=== PATIENT | female | born 1975 | race African-American/Black ===

== ENCOUNTER 2024-01-31 13:49 | Inpatient (IN) ==
[2024-01-31] MEDS: NITROGLYCERIN SL 0.4 MG/TAB TAB SL PRN (14:12)
[2024-01-31] MEDS: ASPIRIN CHEW 324 MG PO STA (14:12)
--- NOTE | 2024-01-31 14:29 | XRay Report ---
XR chest 1V portable CLINICAL HISTORY: Chest pain, nonspecific TECHNIQUE: Single frontal radiograph of the chest was obtained. Comparison: None available at the time of this dictation. FINDINGS: No lines and tubes are seen. Cardiomegaly is noted. The lungs are clear. No evidence of pleural effus ion or pneumothorax. IMPRESSION: No acute chest disease. ACT 112: Negative or not required by law. Electronically signed by: Pierce Vázquez M.D. 01/31/2024 2:28 PM
[2024-01-31 14:30] LABS: Basophils # (auto) 0.07 K/uL (0.00-0.20); Basophils % (auto) 0.8 %; Eosinophils # (auto) 0.23 K/uL (0.00-0.50); Eosinophils % (auto) 2.6 %; Hematocrit (blood only) 38.8 % (37.0-47.0); Immature Granulocytes # (auto) 0.05 K/uL (0.01-0.20); Immature Granulocytes % (auto) 0.6 %; Lymphocytes # (auto) 2.42 K/uL (1.20-3.40); Lymphocytes % (auto) 26.9 %; Mean Corpuscular Hemoglobin 20.2 pg (25.0-34.0); Mean Corpuscular Hgb Conc 30.9 g/dL (32.0-36.0); Mean Corpuscular Volume 65.4 fL (80.0-100.0); Monocytes # (auto) 1.05 K/uL (0.11-0.59); Monocytes % (auto) 11.7 %; Neutrophils # (auto) 5.19 K/uL (1.40-6.50); Neutrophils % (auto) 57.4 %; Nucleated RBC # (auto) 0.03 K/uL (0.00-0.12); Nucleated RBC % (auto) 0.3 %; RDW Standard Deviation 35.5 fL (36.4-46.3); Red Blood Count 5.93 M/uL (4.20-5.40); White Blood Count 9.01 K/ul (4.8-10.8)
[2024-01-31 14:43] LABS: BUN Creatinine Ratio 10.2 (10-20); Creatinine Clr Calc Pharmacy 82.6 ml/min; Est GFR (African American) 88.8 ml/min; Est GFR (Non-African American) 76.6 ml/min; Potassium 3.4 mmol/L (3.5-5.1)
[2024-01-31 14:49] LABS: Troponin I High Sensitivity 6.1 pg/ml (0-14)
[2024-01-31] MEDS: OPTIRAY 320 125ml IV ONE (14:50)
[2024-01-31 14:59] LABS: Partial Thromboplastin Ratio 0.9; Partial Thromboplastin Time 25 Seconds (21-31); Prothrombin Time 10.5 Seconds (9.0-12.0)
[2024-01-31 15:01] LABS: Platelet Count 285 K/uL (130-400); Platelet Estimate Normal (Normal); Polychromasia 1+; Target Cells 1+; Tear Drop Cells 1+
--- NOTE | 2024-01-31 15:24 | CT Scan Report ---
CT ANGIOGRAPHY OF THE CHEST, PULMONARY EMBOLUS PROTOCOL CLINICAL HISTORY: Chest Pain, eval for PE COMPARISON STUDY: Chest radiograph performed earlier today. TECHNIQUE: Following IV administration of 119 mL of Optiray, helical axial images of the chest were o btained utilizing the pulmonary embolus protocol. Maximal intensity projections and sagittal and cor onal reformats were viewed on an independent 3D workstation. IV contrast was administered without co mplication. Automated exposure control was utilized for the study. A dose lowering technique was ut ilized adhering to the principles of ALARA. CT DOSE: 666.51 mGy.cm FINDINGS: No pulmonary emboli are identified. There is no thoracic aortic dissection. There is mild aneurysmal dilatation of the ascending aorta measuring 4.1 cm at the level of the main pulmonary hayde ry. The central pulmonary arteries are mildly dilated. Main pulmonary artery measures 3.6 cm in calib er. The heart is mildly enlarged. There is no pericardial effusion. There is no pneumothorax or pleur al effusion. There is no consolidation to suggest pneumonia. Mild upper lobe predominant emphysema is present. There are no suspicious pulmonary nodules. IMPRESSION: 1. No pulmonary emboli identified. 2. No acute intrathoracic findings. 3. Mild aneurysmal dilatation of the ascending aorta measuring 4.1 cm at the level of the main pulmon richard artery. 4. Mild cardiomegaly. 5. Dilatation of the central pulmonary arteries which raises the possibility of pulmonary arterial hy pertension. 6. Mild emphysema. ACT 112: Negative or not required by law. Electronically signed by: Joe Amos M.D. 01/31/2024 3:22 PM
--- NOTE | 2024-01-31 15:43 | Electrocardiogram Report ---
Test Reason : Blood Pressure : */* mmHG Vent. Rate : 96 BPM Atrial Rate : 96 BPM P-R Int : 166 ms QRS Dur : 90 ms QT Int : 356 ms P-R-T Axes : 71 32 43 degrees QTcB Int : 449 ms Normal sinus rhythm Minimal voltage criteria for LVH, may be normal variant Borderline ECG No previous ECGs available Confirmed by Chin Jackson ([id number]) on 01/31/2024 3:43:28 PM Referred By: REFERRED SELF Confirmed By: Chin Jackson
--- NOTE | 2024-01-31 15:45 | History & Physical Report ---
Date of Service January 31, 2024 Assessment & Plan (1) Chest pain: (2) Hypertensive urgency: (3) HTN (hypertension): (4) Asthma: (5) Vitamin D deficiency: (6) Beta thalassemia: Plan: Chest Pain Hypertensive Urgency Suspected Pulmonary Artery Hypertension - Admit to tele for CP r/o - Trend cardiac biomarkers, initial set was negative at 6.1 - EKG reviewed personally in NSR, HR in the 90s, no ST wave changes however there is nothing to compare to today. Repeat in am. - Check 2 D echo - Cardiology consulted - If negative enzymes can consider a stress test tomorrow morning. - Initial BP was 215/118 -- given lisinopril 5 mg now and IV labetolol with improvement in BP to 168/107, start metoprolol 25 mg BID this evening - CTA is negative for pulmonary embolism but does show dilated central pulmonary arteries suspicious for pulmonary artery hypertension - PT/OT consulted - Concern that anxiety is playing a large role - pt is agreeable to psych eval for starting anxiolytic. She has not seen therapist previously. - Recently trialed Chantix, possible that this caused increased irritability/anxiety/panic attacks? Hypokalemia - K was 3.4 initially, replaced orally Nicotine Use/Vape/Cigarette Use Asthma, intermittent - Encourage cessation - Chantix stopped 3 days ago - significant anxiety - likely a side effect of the medication as can cause up to 8% after review in uptodate - Proair to continue Anxiety Panic Attack - Psych consult - Consider initiation of SSRI/SNRI to assist with neuropathy and support use of gabapentin for shoulder pain R shoulder pain - Consider Xray vs MRI - Negative empty can test, has point tenderness over the acromion process with palpation- consider acromioclavicular joint injury from swinging her arm hard a month ago. 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, she does see an oncologist in [place] - Denies chronic pain or specific area to suggest that she is in crisis - Pt does not receive routine blood transfusions DVT ppx: teds, scds, subcu heparin Lines: PIV x 1 FEN/GI: HH diet CODE: Full code Dispo: From home, likely to remain in the hospital x 1-2 days A total of 78 minutes were spent with greater than 50% of that time face to face with the patient, personally reviewing all current laboratories, imaging studies, past medication reconciliation, outpatient chart review, and discussion with specialists to collaborate care for the patient with attending. Please see attending documentation for corrections and/or additions. History of Present Illness Chief Complaint: Chest pain Primary Care Provider: Gabriel Deleon MD This is a 48-year-old female with PMHx of beta thalassemia, HTN, intermittent asthma, vitamin D deficiency, history of smoking, chronic bilateral low back pain with sciatica who presents to the hospital with acute onset of chest pain with radiation to the R shoulder blade and down into right arm. She reports that this began approximately 1 hour prior to her arrival in the ER, notes that she was significantly stressed and anxious about a argument she was having with her about the television. He is seated at bedside and confirms this. She reports that her anxiety has been extremely high in the past week regarding repeated television arguments. She has never had chest pain like this before. Denies any shortness of breath during these events, no headache although she has a history of migraine, no other acute symptoms. Currently she denies any chest pain or shortness of breath.Did not take her morning HCTZ 12.5 mg this morning. 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 About 1 month ago she swung her arm hard and states that has had pain ever since then. She is unable to lift more than 5 pounds above the height of the shoulder without pain. She was started on gabapentin by PCP 1 week ago and reports that this has improved numbness and tingling pain which was running down into her right arm. Denies any current shoulder pain or arm pain, states that her arm pain she fell earlier today has been similar to that she is experienced in the past month. Patient was seen by PCP approximately 1 week ago, was started on Chantix for cessation of smoking cigarettes which she has been doing for 2 years, prior to that was vaping nicotine x 15 years. She took the Chantix for 3 days and then quit, which was 01/28/2024. Patient denies any significant improvement with being on Chantix for 3 days. Patient states that she prefers a vape and wants to go back to doing this. She also says she has the willpower to quit nicotine all on her own if she wants to. Admits to smoking marijuana occasionally, also uses marijuana Gummies. Denies any illicit drug use otherwise or alcohol use. Reports unintentional weight loss of ~20 lbs over the past year due to poor diet. Also noting rash over her chin s/p shaving, also around her neck and between breasts which is itchy, started 3 days ago. Family history: Mother: heart disease, ID, at age 67 Maternal grandmother: COVID and ID, in her 80s. Paternal grandmother: heart disease, from walking pneumonia Initially she presented to the hospital with a BP of 215/116, received 1 dose of sublingual nitro with slight improvement in chest discomfort. EKG did not show any acute findings. Troponin is negative at 6.1. She did not take any of her morning antihypertensive medications today which includes HCTZ 12.5 daily. CTA of the chest was negative for PE. Allergies Allergy/AdvReac Type Severity Reaction Status Date / Time cephalexin [From Keflex] Allergy Severe PER PT Verified 01/31/24 15:40 "SWELL UP ALL OVER" house dust Allergy Mild Cough Verified 01/31/24 15:40 Home Medications Medication Instructions Recorded Confirmed Type albuterol sulfate 90 mcg/actuation 2 inh inhalation QID 01/31/24 01/31/24 History aerosol inhaler cholecalciferol (vitamin D3) 10 400 unit PO BID 01/31/24 01/31/24 History mcg (400 unit) tablet ferrous sulfate 325 mg (65 mg 325 mg PO BID 01/31/24 01/31/24 History iron) tablet fluticasone fur. 200 mcg-umeclid 1 inh inhalation QPM 01/31/24 01/31/24 History 62.5 mcg-vilant 25 mcg inhalat.powder (Trelegy Ellipta) gabapentin 300 mg capsule 600 mg PO HS 01/31/24 01/31/24 History hydrochlorothiazide 12.5 mg capsule 12.5 mg PO QAM 01/31/24 01/31/24 History montelukast 10 mg tablet 10 mg PO QAM 01/31/24 01/31/24 History ayjhkpsx-lvf-nfvdg ac 400 1 tab PO QAM 01/31/24 01/31/24 History mcg-calcium carb 500 mg-vit K1 20 mcg tablet (Women's 50 Plus Multivitamin) varenicline 0.5 mg (11)-1 mg (42) 1 ea PO DIRECTED 01/31/24 01/31/24 History tablets in a dose pack Past Med/Surg History Problem List (Updated 01/31/24 @ 19:27 by Shaquille Berrios MD) Hypertensive urgency (Acute) Chest pain (Acute) Medical History (Updated 01/31/24 @ 19:27 by Shaquille Berrios MD) Asthma Beta thalassemia Vitamin D deficiency HTN (hypertension) Surgical History (Updated 01/31/24 @ 15:40 by Nayeli Dennis PA-C) History of salpingostomy Hx of section x3 Social History (Updated 01/31/24 @ 15:41 by Nayeli Dennis PA-C) Smoking Status: Current every day smoker Tobacco Type: E-cigarettes / Vaping Hx Alcohol Use: No Hx Substance Use: No Preferred Language: Citizen Of [place] Communication Ability: Effective Database Reporting Consultant Required: No Beliefs That Will Affect Care: Cheondoism Cheondoism Beliefs: Zoroastrian Current Living Situation: Spouse Current Living Situation Comment: apartment with Peter and son Other Information That Helps Us Care for You: No Feels Safe at Home: Yes Safety Concerns: Feels Safe At This Time Review of Systems Review of Systems: Constitutional: No fever, sweats or chills Eyes: No diplopia, no worsening or blurred vision ENT: normal hearing, no trouble swallowing Respiratory: No cough, sputum, dyspnea at rest or on exertion Cardiovascular: As per HPI, currently no chest pain, tightness or palpitations Abdomen: No pain, nausea, vomiting, diarrhea or constipation Musculoskeletal: Right upper back/right shoulder joint pain as per HPI, no calf pain, swelling Neurologic: No weakness, numbness/tingling, or balance problems Psychiatric: + anxiety, denies depression Skin: + Skin rash under her chin, around the sides of her neck and between breasts, or itch Physical Exam Physical Exam: General: awake, alert, no apparent distress, female Head: Normocephalic, atraumatic ENT: PERRL, EOMI, no pharyngeal exudate, mucous membranes moist Chest: Clear to auscultation, on room air, no adventitious breath sounds Cardiac: Chest nontender to palpation, nitropaste on chest, Regular rate and rhythm, no murmur, no JVD, normal peripheral pulses, good capillary refill Abdominal: NABS x 4 quadrants, soft, nondistended, nontender to palpation, no rebound or guarding Extremities: Normal inspection, no peripheral edema or erythema, calfs nontender to palpation, + point tenderness in R AC joint on palpation, negative empty can test, pt moves arm with full active ROM. Psych: Normal mood and affect Neuro: AAO x 3, strength intact bilaterally and rated 5/5, no motor deficits, speech is clear, no peripheral sensory deficits Results & Data Results & Data Vital Signs (Past 12 Hours) Vital Signs Temp Pulse Resp BP BP Pulse Ox O2 Del Method 01/31/24 15:21 78 01/31/24 14:59 215/116 H 01/31/24 14:14 98 Room Air 01/31/24 13:55 36.1 C L 90 22 215/118 H 98 Room Air Laboratory Results 01/31/24 14:05 WBC 9.01 RBC 5.93 H Hgb 12.0 Hct 38.8 MCV 65.4 L MCH 20.2 L MCHC 30.9 L RDW Std Deviation 35.5 L RDW Coeff of Nestor 18.0 H Plt Count 285 MPV 10.0 Immature Gran % (Auto) 0.6 Neut % (Auto) 57.4 Lymph % (Auto) 26.9 Rich % (Auto) 11.7 Eos % (Auto) 2.6 Baso % (Auto) 0.8 Neut # (Auto) 5.19 Lymph # (Auto) 2.42 Rich # (Auto) 1.05 H Eos # (Auto) 0.23 Baso # (Auto) 0.07 Immature Gran # (Auto) 0.05 Absolute Nucleated RBC 0.03 Nucleated RBC % (auto) 0.3 Platelet Estimate Normal Polychromasia 1+ Target Cells 1+ Tear Drop Cells 1+ PT 10.5 INR 1.0 APTT 25 PTT Ratio 0.9 Sodium 139 Potassium 3.4 L Chloride 101 Carbon Dioxide 32 Anion Gap 6 BUN 9 Creatinine 0.88 Est Cr Clr Drug Dosing 82.6 Est GFR ( Amer) 88.8 Est GFR (Non-Af Amer) 76.6 BUN/Creatinine Ratio 10.2 Glucose 99 Calcium 10.0 Troponin I High Sens 6.1 Lipase 32 Diagnostic Findings Chest X-Ray 01/31/24 14:05 XR chest 1V portable CLINICAL HISTORY: Chest pain, nonspecific TECHNIQUE: Single frontal radiograph of the chest was obtained. Comparison: None available at the time of this dictation. FINDINGS: No lines and tubes are seen. Cardiomegaly is noted. The lungs are clear. No evidence of pleural effusion or pneumothorax. IMPRESSION: No acute chest disease. ACT 112: Negative or not required by law. Electronically signed by: Pierce Vázquez M.D. 01/31/2024 2:28 PM Chest CTA 01/31/24 14:06 CT ANGIOGRAPHY OF THE CHEST, PULMONARY EMBOLUS PROTOCOL CLINICAL HISTORY: Chest Pain, eval for PE COMPARISON STUDY: Chest radiograph performed earlier today. TECHNIQUE: Following IV administration of 119 mL of Optiray, helical axial images of the chest were obtained utilizing the pulmonary embolus protocol. Maximal intensity projections and sagittal and coronal reformats were viewed on an independent 3D workstation. IV contrast was administered without complication. Automated exposure control was utilized for the study. A dose lowering technique was utilized adhering to the principles of ALARA. CT DOSE: 666.51 mGy.cm FINDINGS: No pulmonary emboli are identified. There is no thoracic aortic dissection. There is mild aneurysmal dilatation of the ascending aorta measuring 4.1 cm at the level of the main pulmonary artery. The central pulmonary arteries are mildly dilated. Main pulmonary artery measures 3.6 cm in caliber. The heart is mildly enlarged. There is no pericardial effusion. There is no pneumothorax or pleural effusion. There is no consolidation to suggest pneumonia. Mild upper lobe predominant emphysema is present. There are no suspicious pulmonary nodules. IMPRESSION: 1. No pulmonary emboli identified. 2. No acute intrathoracic findings. 3. Mild aneurysmal dilatation of the ascending aorta measuring 4.1 cm at the level of the main pulmonary artery. 4. Mild cardiomegaly. 5. Dilatation of the central pulmonary arteries which raises the possibility of pulmonary arterial hypertension. 6. Mild emphysema. ACT 112: Negative or not required by law. Electronically signed by: Joe Amos M.D. 01/31/2024 3:22 PM Code Status & VTE Plan Code Status Full code Supervising Physician Co-Signing Physician Notes Attending Addendum: Case reviewed with the advanced practitioner. I have personally performed a history and physical examination on the patient. I have reviewed the advanced practitioner's documentation on the date of service referenced in note, and I agree with, and take responsibility for the plan of care. please refer to her notes for full details patient seen and examined, records reviewed by myself as well on exam, patient Resting in bed, comfortable, not in distress, good space Reports chest pain has resolved Denies shortness of breath, headache, nausea vomiting, palpitations, dizziness Requesting for food No other symptoms no other symptoms VS noted and reviewed oriented x 3, not in distress, speaks in sentences with no effort nor accessory muscle use normal rate, regular rhythm, no murmurs clear breath sounds bilaterally non distended, soft, nontender no bipedal edema, erythema, warmth no neuro deficits all labs, imaging noted and reviewed ASSESSMENT AND PLAN 48-year-old female with history of hypertension, smoking, strong family history of CAD, presenting with chest pain. Chest pain, rule out acute coronary syndrome Possibly secondary to hypertensive urgency CT chest: No PE Resolved with lowering of blood pressure after nitroglycerin paste, and labetalol Troponin x 1 negative, second troponin pending EKG no signs of ischemia or infarct Start metoprolol, lisinopril, aspirin, simvastatin N.p.o. postmidnight, for possible stress test Cardiology service consulted Start Lovenox or heparin SC for DVT prophylaxis once blood pressure has been stabilized other diagnoses and plan of care as per advanced practitioner's notes Morgan Neely MD
[2024-01-31] MEDS: NITROGLYCERIN SL 0.4 MG/TAB TAB SL STA (15:49)
[2024-01-31] MEDS: NITROGLYCERIN 2% OINTMENT 30GM TUBE EXT ONE (15:51)
[2024-01-31] MEDS: LABETALOL HCL IV 5 MG/ML 20ML IV ONE (15:58)
[2024-01-31] MEDS: lisinopril 5 MG TAB PO ONE (15:58)
[2024-01-31] MEDS: LABETALOL HCL IV 5 MG/ML 20ML IV STA (16:06)
[2024-01-31] MEDS ORDERED: TRIAMCINOLONE ACET 0.1% CR 80 GM TUBE EXT PRN (17:27)
[2024-01-31] MEDS ORDERED: MoRPHine SULFATE 2 MG/ML CARP IV PRN (17:27)
[2024-01-31] MEDS: POTASSIUM CHLORIDE CRTAB 20 MEQ TABCR PO STA (18:22)
[2024-01-31] MEDS: ACETAMINOPHEN 325 MG TAB PO PRN (18:26)
[2024-01-31] MEDS: ALBUTEROL HFA 8 GM INHALER INH SCH (19:22)
--- NOTE | 2024-01-31 19:27 | Emergency Department Note ---
History of Present Illness General Chief Complaint: Chest Pain Stated Complaint: CHEST PAINS Time Seen by Provider: 01/31/24 14:00 History of Present Illness Provider Complaint: chest pain Onset (ago): day(s) 1 Duration: intermittent Onset: during rest Pain Location: substernal and right chest Pain Radiation: RUE and jaw/teeth Maximum Pain Intensity: 5 Current Pain Intensity: 5 Quality: + tightness, + aching, + sharp and + dull Relieved By: + nothing Exacerbated By: + nothing Context: no recent illness, no recent surgery, no recent travel, no trauma/injury or no history of DVT/PE Associated symptoms: no nausea, no vomiting, no diaphoresis, no dyspnea, no syncope, no palpitations, no fever or no cough Patient reports she did not take her medications today. Home Medications Medication Instructions Recorded Confirmed Type albuterol sulfate 90 mcg/actuation 2 inh inhalation QID 01/31/24 01/31/24 History aerosol inhaler cholecalciferol (vitamin D3) 10 400 unit PO BID 01/31/24 01/31/24 History mcg (400 unit) tablet ferrous sulfate 325 mg (65 mg 325 mg PO BID 01/31/24 01/31/24 History iron) tablet fluticasone fur. 200 mcg-umeclid 1 inh inhalation QPM 01/31/24 01/31/24 History 62.5 mcg-vilant 25 mcg inhalat.powder (Trelegy Ellipta) gabapentin 300 mg capsule 600 mg PO HS 01/31/24 01/31/24 History hydrochlorothiazide 12.5 mg capsule 12.5 mg PO QAM 01/31/24 01/31/24 History montelukast 10 mg tablet 10 mg PO QAM 01/31/24 01/31/24 History wvnswppi-knx-luguk ac 400 1 tab PO QAM 01/31/24 01/31/24 History mcg-calcium carb 500 mg-vit K1 20 mcg tablet (Women's 50 Plus Multivitamin) varenicline 0.5 mg (11)-1 mg (42) 1 ea PO DIRECTED 01/31/24 01/31/24 History tablets in a dose pack Allergies Allergy/AdvReac Type Severity Reaction Status Date / Time cephalexin [From Keflex] Allergy Severe PER PT Verified 01/31/24 15:40 "SWELL UP ALL OVER" house dust Allergy Mild Cough Verified 01/31/24 15:40 Past Med/Surg History Problem List (Updated 01/31/24 @ 19:27 by Shaquille Berrios MD) Hypertensive urgency (Acute) Chest pain (Acute) Medical History (Updated 01/31/24 @ 19:27 by Shaquille Berrios MD) Asthma Beta thalassemia Vitamin D deficiency HTN (hypertension) Surgical History (Updated 01/31/24 @ 15:40 by Nayeli Dennis PA-C) History of salpingostomy Hx of section x3 Social History (Updated 01/31/24 @ 15:41 by Nayeli Dennis PA-C) Smoking Status: Current every day smoker Tobacco Type: E-cigarettes / Vaping Hx Alcohol Use: No Hx Substance Use: No Preferred Language: Telugu Communication Ability: Effective Compressor Station Operator Required: No Beliefs That Will Affect Care: Worship Worship Beliefs: Gnosticist Current Living Situation: Spouse Current Living Situation Comment: apartment with Peter and son Other Information That Helps Us Care for You: No Feels Safe at Home: Yes Safety Concerns: Feels Safe At This Time Physical Exam Vital Signs Vital Signs - 24 hr 01/31/24 13:55 01/31/24 14:14 01/31/24 14:59 Temperature 36.1 C L Temperature Source Temporal Artery Scan Pulse Rate 90 Respiratory Rate 22 Respiratory Effort / Characteristics Non-Labored Spontaneous Respiratory Depth Normal Respiratory Pattern Regular Blood Pressure 215/118 H Blood Pressure [Left Arm] 215/116 H Blood Pressure Mean 150 Blood Pressure Mean [Left Arm] 149 Pulse Oximetry 98 98 Oxygen Delivery Method Room Air Room Air Sepsis Recent Fever Within 48 Hours No Sepsis New/Unexplained Change in Mental Status N/A Sepsis Action Taken by Nursing No Action Required 01/31/24 15:21 01/31/24 15:58 Temperature Temperature Source Pulse Rate 78 79 Respiratory Rate Respiratory Effort / Characteristics Respiratory Depth Respiratory Pattern Blood Pressure 210/123 H Blood Pressure [Left Arm] Blood Pressure Mean Blood Pressure Mean [Left Arm] Pulse Oximetry Oxygen Delivery Method Sepsis Recent Fever Within 48 Hours Sepsis New/Unexplained Change in Mental Status Sepsis Action Taken by Nursing Physical Exam HENT: Exam performed. - Head: Normocephalic and atraumatic. EYES: Conjunctivae and EOM are normal. Right eye exhibits no discharge. Left eye exhibits no discharge. No scleral icterus. NECK: Normal range of motion. Neck supple. No JVD present. CV: Normal rate, regular rhythm, normal heart sounds and intact distal pulses. There is no peripheral edema. Palpable radial pulses bue. PULM/CHEST: Effort normal and breath sounds normal. No respiratory distress. No stridor. no wheezes. no rales. ABD: The abdomen is soft. There is no tenderness. NEURO: Motor and sensation grossly intact. SKIN: Skin is warm and dry. He is not diaphoretic. PSYCH: normal mood and affect. Behavior is normal. Judgment and thought content normal. Course Course 1400: The patient was evaluated in room A3. A complete history and physical exam was performed Cardiac monitoring: An order was placed for continuous cardiac monitoring. The monitor shows a rate of 90 with sinus rhythm interpreted by me 1430: Patient reports that her chest pain is resolved with sublingual nitroglycerin. 1530: Labs are unremarkable. Imaging shows no pulmonary embolus or aortic dissection. There is aneurysmal dilatation of the ascending aorta measuring 4.1 cm and possible pulmonary arterial hypertension. Patient remains hypertensive. Patient is reporting her chest pain is come back. Repeat sublingual nitroglycerin and Nitropaste ordered for the patient. Patient will be admitted to the [facility] team. Administered Medications Acetaminophen (Acetaminophen 325 Mg Tab) 650 mg PO Q4H PRN PRN Reason: Moderate Pain (Scale 4, 5, 6) Stop: 03/01/24 17:26 Last Admin: 01/31/24 18:26 Dose: 650 mg Documented By: DAMIAN Nitroglycerin (Nitroglycerin Sl 0.4 Mg/Tab Tab) 0.4 mg SL Q5M PRN PRN Reason: Chest Pain Stop: 03/01/24 14:04 Last Admin: 01/31/24 15:45 Dose: 0.4 mg Documented By: Admin: 01/31/24 14:12 Dose: 0.4 mg Documented By: WILNER Discontinued Medications Aspirin (Aspirin Chew 324 Mg) 324 mg PO NOW STA Stop: 01/31/24 14:06 Last Admin: 01/31/24 14:12 Dose: 324 mg Documented By: WILNER Ioversol (Optiray 320 125ml) 119 ml IV ONCE ONE Stop: 01/31/24 14:51 Last Admin: 01/31/24 14:50 Dose: 119 ml Documented By: EAB Labetalol HCl (Labetalol Hcl Iv 5 Mg/Ml 20ml) Confirm Administered Dose 5 mg IV .STK-MED ONE Stop: 01/31/24 15:57 Last Admin: 01/31/24 15:58 Dose: 10 mg Documented By: WILNER Labetalol HCl (Labetalol Hcl Iv 5 Mg/Ml 20ml) 10 mg IV NOW STA Stop: 01/31/24 15:58 Last Admin: 01/31/24 16:06 Dose: Not Given Documented By: WILNER Lisinopril (Lisinopril 5 Mg Tab) 5 mg PO NOW ONE Stop: 01/31/24 15:50 Last Admin: 01/31/24 15:58 Dose: 5 mg Documented By: WILNER Nitroglycerin (Nitroglycerin Sl 0.4 Mg/Tab Tab) 0.4 mg SL NOW STA Stop: 01/31/24 15:47 Last Admin: 01/31/24 15:49 Dose: Not Given Documented By: WILNER Nitroglycerin (Nitroglycerin 2% Ointment 30gm Tube) 0.5 inch EXT NOW ONE Stop: 01/31/24 15:47 Last Admin: 01/31/24 15:51 Dose: 0.5 inch Documented By: WILNER Potassium Chloride (Potassium Chloride Crtab 20 Meq Tabcr) 40 meq PO NOW STA Stop: 01/31/24 17:08 Last Admin: 01/31/24 18:22 Dose: 40 meq Documented By: DAMIAN Medical Decision Making Laboratory Data Attestation: I reviewed the patient's lab results. 01/31/24 14:05 01/31/24 14:05 Labs: Lab Results 01/31/24 Range/Units 14:05 WBC 9.01 (4.8-10.8) K/ul RBC 5.93 H (4.20-5.40) M/uL Hgb 12.0 (12.0-16.0) g/dl Hct 38.8 (37.0-47.0) % MCV 65.4 L (80.0-100.0) fL MCH 20.2 L (25.0-34.0) pg MCHC 30.9 L (32.0-36.0) g/dL RDW Std Deviation 35.5 L (36.4-46.3) fL RDW Coeff of Nestor 18.0 H (11.5-14.5) % Plt Count 285 (130-400) K/uL MPV 10.0 (9.4-12.4) fL Immature Gran % (Auto) 0.6 % Neut % (Auto) 57.4 % Lymph % (Auto) 26.9 % [place] % (Auto) 11.7 % Eos % (Auto) 2.6 % Baso % (Auto) 0.8 % Neut # (Auto) 5.19 (1.40-6.50) K/uL Lymph # (Auto) 2.42 (1.20-3.40) K/uL [place] # (Auto) 1.05 H (0.11-0.59) K/uL Eos # (Auto) 0.23 (0.00-0.50) K/uL Baso # (Auto) 0.07 (0.00-0.20) K/uL Immature Gran # (Auto) 0.05 (0.01-0.20) K/uL Absolute Nucleated RBC 0.03 (0.00-0.12) K/uL Nucleated RBC % (auto) 0.3 % Platelet Estimate Normal (Normal) Polychromasia 1+ Target Cells 1+ Tear Drop Cells 1+ PT 10.5 (9.0-12.0) Seconds INR 1.0 (0.9-1.1) APTT 25 (21-31) Seconds PTT Ratio 0.9 Sodium 139 (136-145) mmol/L Potassium 3.4 L (3.5-5.1) mmol/L Chloride 101 (98-107) mmol/L Carbon Dioxide 32 (21-32) mmol/L Anion Gap 6 (3-11) BUN 9 (6-23) mg/dl Creatinine 0.88 (0.6-1.2) mg/dl Est Cr Clr Drug Dosing 82.6 ml/min Est GFR ( Amer) 88.8 ml/min Est GFR (Non-Af Amer) 76.6 ml/min BUN/Creatinine Ratio 10.2 (10-20) Glucose 99 (70-99(Fasting)) mg/dl Calcium 10.0 (8.6-10.3) mg/dl Troponin I High Sens 6.1 (0-14) pg/ml Lipase 32 (11-82) U/L Imaging Data Chest x-ray: Attestation: I personally reviewed and interpreted this imaging study as follows: My impression: Chest x-ray negative. Airway clear. No pneumothorax. No consolidation. No cardiomegaly or cephalization.. No free air under the diaphragm. No fractures of the skeletal structures. Radiologist's impression: XR chest 1V portable CLINICAL HISTORY: Chest pain, nonspecific TECHNIQUE: Single frontal radiograph of the chest was obtained. Comparison: None available at the time of this dictation. FINDINGS: No lines and tubes are seen. Cardiomegaly is noted. The lungs are clear. No evidence of pleural effusion or pneumothorax. IMPRESSION: No acute chest disease. ACT 112: Negative or not required by law. Electronically signed by: Pierce Vázquez M.D. 01/31/2024 2:28 PM Dictated: 01/31/241427 Transcribed: 01/31/241427 CT scan - chest: Radiologist's impression: CT ANGIOGRAPHY OF THE CHEST, PULMONARY EMBOLUS PROTOCOL CLINICAL HISTORY: Chest Pain, eval for PE COMPARISON STUDY: Chest radiograph performed earlier today. TECHNIQUE: Following IV administration of 119 mL of Optiray, helical axial images of the chest were obtained utilizing the pulmonary embolus protocol. Maximal intensity projections and sagittal and coronal reformats were viewed on an independent 3D workstation. IV contrast was administered without complication. Automated exposure control was utilized for the study. A dose lowering technique was utilized adhering to the principles of ALARA. CT DOSE: 666.51 mGy.cm FINDINGS: No pulmonary emboli are identified. There is no thoracic aortic dissection. There is mild aneurysmal dilatation of the ascending aorta measuring 4.1 cm at the level of the main pulmonary artery. The central pulmonary arteries are mildly dilated. Main pulmonary artery measures 3.6 cm in caliber. The heart is mildly enlarged. There is no pericardial effusion. There is no pneumothorax or pleural effusion. There is no consolidation to suggest pneumonia. Mild upper lobe predominant emphysema is present. There are no suspicious pulmonary nodules. IMPRESSION: 1. No pulmonary emboli identified. 2. No acute intrathoracic findings. 3. Mild aneurysmal dilatation of the ascending aorta measuring 4.1 cm at the level of the main pulmonary artery. 4. Mild cardiomegaly. 5. Dilatation of the central pulmonary arteries which raises the possibility of pulmonary arterial hypertension. 6. Mild emphysema. ACT 112: Negative or not required by law. Electronically signed by: Joe Amos M.D. 01/31/2024 3:22 PM Dictated: 01/31/24 1512 Transcribed: 01/31/24 1512 ECG Data Attestation: I personally reviewed and interpreted this ECG as follows: Indication: chest pain Rate (beats per minute): 96 Rhythm: normal sinus Findings: no ST depression, no ST elevation or no prolonged QT MDM Narrative 1400: The patient was evaluated in room A3. A complete history and physical exam was performed Cardiac monitoring: An order was placed for continuous cardiac monitoring. The monitor shows a rate of 90 with sinus rhythm interpreted by me 1430: Patient reports that her chest pain is resolved with sublingual nitroglycerin. 1530: Labs are unremarkable. Imaging shows no pulmonary embolus or aortic dissection. There is aneurysmal dilatation of the ascending aorta measuring 4.1 cm and possible pulmonary arterial hypertension. Patient remains hypertensive. Patient is reporting her chest pain is come back. Repeat sublingual nitroglycerin and Nitropaste ordered for the patient. Patient will be admitted to the [facility] team. Impression & Plan Hypertensive urgency, Chest pain Discharge Plan Visit Data Chief Complaint: Chest Pain Stated Complaint: CHEST PAINS ED Provider: Shaquille Berrios Discharge Problem: Hypertensive urgency, Chest pain Patient Disposition: Admitted As Inpatient Discharge Instructions Interventions: ED Discharge Assessment Last Done: 01/31/24 17:10 Discharge Problem: Chest pain Qualifiers: Chest pain type: unspecified Qualified Code(s): R07.9 - Chest pain, unspecified
[2024-01-31] MEDS ORDERED: hydrALAZINE HCL 20 MG/ML VIAL IV PRN (20:15)
[2024-01-31] MEDS ORDERED: NON-FORMULARY MEDICATION (Fluticasone-Umeclidin-Vilanter [Trelegy Ellipta] 200-62.5-25 mcg INH SCH (21:00)
[2024-01-31] MEDS ORDERED: HEPARIN SOD 5,000 UNIT/0.5 ML VIAL SQ SCH (21:00)
[2024-01-31] MEDS: KETOROLAC TROMETHAMINE 15 MG/ML VIAL IV ONE (21:20)
[2024-01-31] MEDS: FERROUS SULFATE 325 MG TAB PO SCH (21:20)
[2024-01-31] MEDS: GABAPENTIN 600 MG TAB PO SCH (21:20)
[2024-01-31] MEDS: METOPROLOL TARTRATE 25 MG TAB PO SCH (21:20)
[2024-01-31] MEDS: CHOLECALCIFEROL 10 MCG (400 UNITS) TAB PO SCH (21:21)
[2024-01-31] MEDS: ONDANSETRON INJ 2 MG/ML 2 ML VIAL IV PRN (22:04)
[2024-02-01] MEDS ORDERED: MELATONIN 3 MG TAB PO PRN (00:03)
[2024-02-01] MEDS: MELATONIN 3 MG TAB PO ONE (00:59)
[2024-02-01 06:57] LABS: Hematocrit (blood only) 36.1 % (37.0-47.0); Hemoglobin 11.3 g/dl (12.0-16.0); Mean Corpuscular Hemoglobin 20.7 pg (25.0-34.0); Mean Corpuscular Hgb Conc 31.3 g/dL (32.0-36.0); Mean Corpuscular Volume 66.1 fL (80.0-100.0); Mean Platelet Volume 10.4 fL (9.4-12.4); Nucleated RBC # (auto) 0.03 K/uL (0.00-0.12); Nucleated RBC % (auto) 0.3 %; Platelet Count 301 K/uL (130-400); RDW Coefficient of Variation 17.2 % (11.5-14.5); RDW Standard Deviation 35.3 fL (36.4-46.3); Red Blood Count 5.46 M/uL (4.20-5.40); White Blood Count 9.26 K/ul (4.8-10.8)
[2024-02-01 07:06] LABS: Microcytosis Present
[2024-02-01 07:27] LABS: BUN Creatinine Ratio 15.6 (10-20); Calcium 9.2 mg/dl (8.6-10.3); Creatinine Clr Calc Pharmacy 94.6 ml/min; Est GFR (African American) 104.3 ml/min
[2024-02-01] MEDS: ATORVASTATIN 20 MG TAB PO SCH (08:40)
[2024-02-01] MEDS: hydroCHLOROthiazide 25 MG TAB PO SCH (08:40)
[2024-02-01] MEDS: lisinopril 5 MG TAB PO SCH (08:40)
[2024-02-01] MEDS: ASPIRIN 81 MG ECTAB PO SCH (08:40)
[2024-02-01] MEDS: FLUTICASONE FUROATE 200MCG 14 PUFFS/INHALER INH SCH (08:42)
[2024-02-01] MEDS: UMECLIDINIUM/VILANTEROL 62.5/25MCG 7 PUFFS/INHALER INH SCH (08:42)
[2024-02-01] MEDS ORDERED: ALBUTEROL HFA 8 GM INHALER INH PRN (09:11)
--- NOTE | 2024-02-01 09:11 | Hospitalist Progress Note ---
Date of Service February 01, 2024 Assessment & Plan (1) HTN (hypertension): (2) Vitamin D deficiency: (3) Beta thalassemia: (4) Chest pain: (5) Hypertensive urgency: (6) Asthma: Plan Pt is a 48-year-old female with PMHx of beta thalassemia, HTN, intermittent asthma, vitamin D deficiency, history of smoking, chronic bilateral low back pain with sciatica who presents to the hospital with acute onset of chest pain with radiation to the R shoulder blade and down into right arm. Chest Pain EKG with no acute findings Tropx2 wnl at 6.1 to 6.4 Chest xray no acute findings Chest CTA noting 4.1cm aneurysm of the aorta, cardiomegaly, possible PAH Echo pending Telemetry monitoring Pt was made NPO overnight for possible stress test this AM. Reportedly angry about not eating, declining stress testing at this time Cardiology consulted, appreciate recs Hypertensive Urgency Initial BP was 215/118 Was given IV labetolol and po lisinopril with improvement in BP to 168/107 started on metoprolol 25 mg BID with hctz 12.5mg Possible cause of chest pain Continue to monitor Possible pulmonary Artery HTN Noted on chest CTA Echo pending Cardiology consulted Consider pulm consult if confirmed on echo Ascending Aorta Aneurysm Noted on CTA chest, 4.1cm PCP follow up Emphysema Pt with past and current tobacco use Chantix stopped 3 days ago - significant anxiety No increased oxygen requirement Encourage cessation Hypokalemia K of 3.4 on admission replete as needed beta thalassemia Microcytic anemia Hgb 11-12 range Microcytic cells Noted hx of beta thal Anxiety Panic Attack Psych consult Consider initiation of SSRI/SNRI to assist with neuropathy and support use of gabapentin for shoulder pain R shoulder pain Consider XR r/o MSK cause Negative empty can test, has point tenderness over the acromion process with palpation PT/OT Consider ortho Beta Thalassemia 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, she does see an oncologist in [place] Denies chronic pain or specific area to suggest that she is in crisis Pt does not receive routine blood transfusions DVT ppx: subcu heparin Diet: HH diet Dispo: Admission and Anticipated Discharge Date Admission Date: January 31, 2024 Results & Data Results & Data Vital Signs (Past 12 Hours) Vital Signs Temp Pulse Pulse Resp BP BP Pulse Ox 02/01/24 07:59 36.8 C 70 16 171/74 H 97 02/01/24 07:22 83 18 95 02/01/24 05:46 61 02/01/24 03:33 36.8 C 68 16 156/88 H 98 02/01/24 00:54 66 01/31/24 23:03 36.5 C 65 16 148/90 H 97 O2 Del Method 02/01/24 07:59 Room Air 02/01/24 07:22 Room Air 02/01/24 05:46 02/01/24 03:33 Room Air 02/01/24 00:54 01/31/24 23:03 Room Air Diagnostic Findings Chest X-Ray 01/31/24 14:05 XR chest 1V portable CLINICAL HISTORY: Chest pain, nonspecific TECHNIQUE: Single frontal radiograph of the chest was obtained. Comparison: None available at the time of this dictation. FINDINGS: No lines and tubes are seen. Cardiomegaly is noted. The lungs are clear. No evidence of pleural effusion or pneumothorax. IMPRESSION: No acute chest disease. ACT 112: Negative or not required by law. Electronically signed by: Pierce Vázquez M.D. 01/31/2024 2:28 PM Chest CTA 01/31/24 14:06 CT ANGIOGRAPHY OF THE CHEST, PULMONARY EMBOLUS PROTOCOL CLINICAL HISTORY: Chest Pain, eval for PE COMPARISON STUDY: Chest radiograph performed earlier today. TECHNIQUE: Following IV administration of 119 mL of Optiray, helical axial images of the chest were obtained utilizing the pulmonary embolus protocol. Maximal intensity projections and sagittal and coronal reformats were viewed on an independent 3D workstation. IV contrast was administered without complication. Automated exposure control was utilized for the study. A dose lowering technique was utilized adhering to the principles of ALARA. CT DOSE: 666.51 mGy.cm FINDINGS: No pulmonary emboli are identified. There is no thoracic aortic dissection. There is mild aneurysmal dilatation of the ascending aorta measuring 4.1 cm at the level of the main pulmonary artery. The central pulmonary arteries are mildly dilated. Main pulmonary artery measures 3.6 cm in caliber. The heart is mildly enlarged. There is no pericardial effusion. There is no pneumothorax or pleural effusion. There is no consolidation to suggest pneumonia. Mild upper lobe predominant emphysema is present. There are no suspicious pulmonary nodules. IMPRESSION: 1. No pulmonary emboli identified. 2. No acute intrathoracic findings. 3. Mild aneurysmal dilatation of the ascending aorta measuring 4.1 cm at the level of the main pulmonary artery. 4. Mild cardiomegaly. 5. Dilatation of the central pulmonary arteries which raises the possibility of pulmonary arterial hypertension. 6. Mild emphysema. ACT 112: Negative or not required by law. Electronically signed by: Joe Amos M.D. 01/31/2024 3:22 PM (4) Chest pain Chest pain type: unspecified Qualified Code(s): R07.9 - Chest pain, unspecified
[2024-02-01 09:57] LABS: Troponin I High Sensitivity 4.6 pg/ml (0-14)
--- NOTE | 2024-02-01 11:35 | Psychiatric Consultation ---
Date of Consultation February 01, 2024 Impression / Recommendations Impression Diagnostically consistent with ELIZABET. She is not interested in an SSRI or SNRI trial at this time which in combination with therapy would be first line treatment. She is willing to discuss therapy options in the future with her primary care provider. She is interested in trial of trazodone for insomnia, reviewed side effects including sedation. Overall, I spent a total of 45 minutes with this case including review of chart records, review of labwork, review of EKG QTc, direct evaluation of the patient at bedside, counseling the patient, discussion of the patient with the Nurse and with the hospitalist provider, discussion with the psychiatric liason during clinical rounds and documentation in the electronic health record. (1) ELIZABET (generalized anxiety disorder): Plan -Consider trazodone 50mg HS (can increase to 100mg HS if needed) -Consider outpatient referrals for therapy Psych History Identifying Data 48 yo woman with a history of anxiety, beta thalassemia, HTN, intermittent asthma, vitamin D deficiency, history of smoking, chronic bilateral low back pain with sciatica admitted for chest pain. Psychiatry consulted for "anxiety, panic attacks". Chief Complaint "Yeah I get anxious and stressed about things". History of Present Illness Tigre reports increased anxiety over the last three years due to periods of conflict with her , loss of property and other stressors. However, she also describes many resilient factors and that she prefers to cope without using medication. About 15 years ago she took paroxetine and alprazolam (generic) for anxiety management but stopped these after two years. She more recently tried hydroxyzine for anxiety and sleep but found it to be ineffective.Currently takes tylenol PM and melatonin for sleep and that is when she is most affected by anxious thoughts. Sometimes has moments of panic attacks/increased stress. Denies any depression symptoms, denies SI. She reports a family history of bipolar disorder, with her mother having suffered from severe depression. She denies any history of jannie. She has beta thalassemia anemia, which causes her to experience aches and pains, particularly at the end of the day. Reviewed possible medication options such as an SSRI or SNRI. She is not interested in taking an SSRI nor SNRI given her son had increased irritability and anger after starting duloxetine. She is hesitant to try other medications for anxiety and is considering coping without pharmacological intervention, likes the idea of possibly doing outpatient therapy. Reviewed medications that could help with sleep, she'd be interested in trazodone. Allergies Allergy/AdvReac Type Severity Reaction Status Date / Time cephalexin [From Keflex] Allergy Severe PER PT Verified 02/01/24 07:40 "SWELL UP ALL OVER" house dust Allergy Mild Cough Verified 02/01/24 07:40 Home Medications Medication Instructions Recorded Confirmed Type albuterol sulfate 90 mcg/actuation 2 inh inhalation QID 01/31/24 01/31/24 History aerosol inhaler cholecalciferol (vitamin D3) 10 400 unit PO BID 01/31/24 01/31/24 History mcg (400 unit) tablet ferrous sulfate 325 mg (65 mg 325 mg PO BID 01/31/24 01/31/24 History iron) tablet fluticasone fur. 200 mcg-umeclid 1 inh inhalation QPM 01/31/24 01/31/24 History 62.5 mcg-vilant 25 mcg inhalat.powder (Trelegy Ellipta) gabapentin 300 mg capsule 600 mg PO HS 01/31/24 01/31/24 History hydrochlorothiazide 12.5 mg capsule 12.5 mg PO QAM 01/31/24 01/31/24 History montelukast 10 mg tablet 10 mg PO QAM 01/31/24 01/31/24 History pclzndbq-xon-vdopc ac 400 1 tab PO QAM 01/31/24 01/31/24 History mcg-calcium carb 500 mg-vit K1 20 mcg tablet (Women's 50 Plus Multivitamin) varenicline 0.5 mg (11)-1 mg (42) 1 ea PO DIRECTED 01/31/24 01/31/24 History tablets in a dose pack Patient History Medical History (Updated 02/01/24 @ 11:35 by Sera Katz MD) Asthma Beta thalassemia Vitamin D deficiency HTN (hypertension) Surgical History (Updated 02/01/24 @ 07:40 by Chloe Villalobos) History of salpingostomy Hx of section x3 Social History (System 02/01/24 @ 07:40 by Chloe Villalobos) Smoking Status: Current every day smoker Tobacco Type: E-cigarettes / Vaping Hx Alcohol Use: No Hx Substance Use: No Preferred Language: Iraqi Communication Ability: Effective Concrete Truck Driver Required: No Beliefs That Will Affect Care: Lutheran Lutheran Beliefs: Adventist Current Living Situation: Spouse Current Living Situation Comment: apartment with Peter and son Other Information That Helps Us Care for You: No Feels Safe at Home: Yes Safety Concerns: Feels Safe At This Time Physical Exam Psychiatric: Orientation: alert and oriented x 3 Apperance: appropriately dressed and appropriately groomed Eye Contact: good eye contact Motor Behavior: no abnormal motor movements Speech: normal rate/rhythm/volume of speech Affect: euthymic affect Mood: + anxious mood Thought Process: goal directed thought process Thought Content: reality based without delusions Suicidal Thoughts: denies suicidal thoughts Homicidal Thoughts: denies homicidal thoughts Hallucinations: no auditory hallucinations and no visual hallucinations Cognition: attention grossly intact and language grossly intact Estimated Intelligence: consistent with education level Insight: + fair insight Judgment: + fair judgement Vital Signs (Past 24 Hours): Last Vital Signs Temp 36.8 C 02/01/24 07:59 Pulse 70 02/01/24 07:59 Resp 16 02/01/24 07:59 BP 171/74 H 02/01/24 07:59 Pulse Ox 97 02/01/24 07:59 O2 Del Method Room Air 02/01/24 07:59 Results & Data (PSY) Medications Administered Acetaminophen (Acetaminophen 325 Mg Tab) 650 mg PO Q4H PRN PRN Reason: Moderate Pain (Scale 4, 5, 6) Stop: 03/01/24 17:26 Last Admin: 02/01/24 00:24 Dose: 650 mg Documented By: Admin: 01/31/24 18:26 Dose: 650 mg Documented By: DAMIAN Aspirin (Aspirin 81 Mg Ectab) 81 mg PO [facility] Stop: 03/02/24 08:59 Last Admin: 02/01/24 08:40 Dose: 81 mg Documented By: WALE Atorvastatin Calcium (Atorvastatin 20 Mg Tab) 20 mg PO [facility] Stop: 03/02/24 08:59 Last Admin: 02/01/24 08:40 Dose: 20 mg Documented By: WALE Ferrous Sulfate (Ferrous Sulfate 325 Mg Tab) 325 mg PO BID [facility] Stop: 03/01/24 20:59 Last Admin: 02/01/24 08:45 Dose: Not Given Documented By: Admin: 01/31/24 21:26 Dose: Not Given Documented By: KENDAL Fluticasone Furoate (Fluticasone Furoate 200mcg 14 Puffs/Inhaler) 1 puffs INH DAILY [facility] Stop: 03/02/24 08:59 Last Admin: 02/01/24 08:42 Dose: 1 puffs Documented By: WALE Gabapentin (Gabapentin 600 Mg Tab) 600 mg PO HS [facility] Stop: 03/01/24 20:59 Last Admin: 01/31/24 21:20 Dose: 600 mg Documented By: KENDAL Hydrochlorothiazide (Hydrochlorothiazide 25 Mg Tab) [facility] [place] Stop: 03/02/24 08:59 Last Admin: 02/01/24 08:40 Dose: 12.5 mg Documented By: WALE Lisinopril (Lisinopril 5 Mg Tab) 5 mg PO QAM [facility] Stop: 03/02/24 08:59 Last Admin: 02/01/24 08:40 Dose: 5 mg Documented By: WALE Metoprolol Tartrate (Metoprolol Tartrate 25 Mg Tab) 25 mg PO BID [facility] Stop: 03/01/24 20:59 Last Admin: 02/01/24 08:43 Dose: Not Given Documented By: Admin: 01/31/24 21:20 Dose: 25 mg Documented By: KENDAL Nitroglycerin (Nitroglycerin Sl 0.4 Mg/Tab Tab) 0.4 mg SL Q5M PRN PRN Reason: Chest Pain Stop: 03/01/24 14:04 Last Admin: 01/31/24 15:45 Dose: 0.4 mg Documented By: Admin: 01/31/24 14:12 Dose: 0.4 mg Documented By: WILNER Ondansetron HCl (Ondansetron Inj 2 Mg/Ml 2 Ml Vial) 4 mg IV Q4H PRN PRN Reason: Nausea And Vomiting Stop: 03/01/24 17:26 Last Admin: 01/31/24 22:04 Dose: 4 mg Documented By: CHARISSE Umeclidinium/Vilanterol (Umeclidinium/Vilanterol 62.5/25mcg 7 Puffs/Inhaler) 1 puffs INH DAILY [facility] Stop: 03/02/24 08:59 Last Admin: 02/01/24 08:42 Dose: 1 puffs Documented By: WALE Vitamin D (Cholecalciferol 10 Mcg (400 Units) Tab) 10 mcg PO BID [facility] Stop: 03/01/24 20:59 Last Admin: 02/01/24 08:45 Dose: Not Given Documented By: Admin: 01/31/24 21:26 Dose: Not Given Documented By: DN Coding Level of Care Code 10615 IN/OBS CONSULT LVL 3,45M Diagnoses ELIZABET (generalized anxiety disorder) F41.1
--- NOTE | 2024-02-01 12:39 | Cardiology Consultation ---
Date of Consultation February 01, 2024 Assessment & Plan (1) Chest pain: (2) Hypertensive urgency: (3) ELIZABET (generalized anxiety disorder): Plan I agree with plans for lisinopril, HCTZ, metoprolol for blood pressure control. Atorvastatin added for cardiac risk reduction. Symptoms somewhat atypical for angina. Troponin negative x 3 which is reassuring. Certainly has underlying cardiac risk factors. Recommend patient remains in hospital for exercise stress echocardiogram. The resting echocardiogram will be helpful with regarding further characterization of her proximal ascending aorta which was mildly enlarged on the CT, and evaluation of her valves, as well as assessment for estimating pulmonary artery systolic pressure given findings of enlarged pulmonary artery on CT scan and history of asthma/emphysema. Patient at first reluctant to remain in hospital but was agreeable after further conversation. History of Present Illness Attending Physician: Beverly Mujica MD History of Present Illness Mrs Clark Is a 48-year-old female seen in cardiology consultation per the request of Nayeli Dennis PA-C Further evaluation of chest discomfort. Patient seen in room 283-1. with her at the bedside. She describes recent episodes of chest discomfort when she has emotional stressors. She states that she is not physically active. Past medical history notable for cigarette smoking, 1 pack/day, asthma, and hypertension. Social History: Current smoker, 1 pack discards per day Family History: Mother at the age of 67 due to presumed heart event, previously had been diagnosed with coronary artery disease and reportedly declined therapy Her father at the age of 62 due to pancreatic carcinoma. Patient states she has no history of heart disease in her siblings. Her daughter has a history of rheumatic fever and resultant rheumatic heart dis ease per her description. Allergies Allergy/AdvReac Type Severity Reaction Status Date / Time cephalexin [From Keflex] Allergy Severe PER PT Verified 02/01/24 07:40 "SWELL UP ALL OVER" house dust Allergy Mild Cough Verified 02/01/24 07:40 Home Medications Medication Instructions Recorded Confirmed Type albuterol sulfate 90 mcg/actuation 2 inh inhalation QID 01/31/24 01/31/24 History aerosol inhaler cholecalciferol (vitamin D3) 10 400 unit PO BID 01/31/24 01/31/24 History mcg (400 unit) tablet ferrous sulfate 325 mg (65 mg 325 mg PO BID 01/31/24 01/31/24 History iron) tablet fluticasone fur. 200 mcg-umeclid 1 inh inhalation QPM 01/31/24 01/31/24 History 62.5 mcg-vilant 25 mcg inhalat.powder (Trelegy Ellipta) gabapentin 300 mg capsule 600 mg PO HS 01/31/24 01/31/24 History hydrochlorothiazide 12.5 mg capsule 12.5 mg PO QAM 01/31/24 01/31/24 History montelukast 10 mg tablet 10 mg PO QAM 01/31/24 01/31/24 History kfmmxvce-sfu-jrmnx ac 400 1 tab PO QAM 01/31/24 01/31/24 History mcg-calcium carb 500 mg-vit K1 20 mcg tablet (Women's 50 Plus Multivitamin) varenicline 0.5 mg (11)-1 mg (42) 1 ea PO DIRECTED 01/31/24 01/31/24 History tablets in a dose pack Patient History Medical History Asthma Beta thalassemia Vitamin D deficiency HTN (hypertension) Surgical History History of salpingostomy Hx of section x3 Social History Smoking Status: Current every day smoker Tobacco Type: E-cigarettes / Vaping Hx Alcohol Use: No Hx Substance Use: No Preferred Language: Nepali Communication Ability: Effective Silo Worker Required: No Beliefs That Will Affect Care: Christianity Christianity Beliefs: Anglican Current Living Situation: Spouse Current Living Situation Comment: apartment with Peter and son Other Information That Helps Us Care for You: No Feels Safe at Home: Yes Safety Concerns: Feels Safe At This Time Review of Systems Review of Systems: All systems reviewed & are unremarkable except as noted in HPI & below Physical Exam Physical Exam: General: no acute distress and stated age Eyes: conjunctiva are pink and non-injected, sclera clear Neck: normal jugular venous pulse, no hepatojugular reflux Chest: normal shape and normal respiratory effort Lungs: clear to auscultation and percussion Cardiac Exam: - regular heart sounds, no murmurs, rubs, or gallops, no jugular venous distention Abdomen: abdomen soft, non-tender, no abnormal masses and no hepatosplenomegaly Musculoskeletal: no gait disturbance, no weakness Extremities: no edema and no cyanosis Neuro:awake, conversant, follows commands, no focal motor deficits Psych: appropriate affect and insight. Results & Data Vital Signs (Past 12 Hours) Vital Signs Temp Pulse Pulse Pulse Resp BP BP 02/01/24 11:54 36.7 C 74 68 16 165/103 H 156/88 H 02/01/24 11:47 36.7 C 68 16 165/103 H 02/01/24 07:59 36.8 C 70 16 171/74 H 02/01/24 07:22 83 18 02/01/24 05:46 61 02/01/24 03:33 36.8 C 68 16 156/88 H 02/01/24 00:54 66 Pulse Ox O2 Del Method 02/01/24 11:54 97 02/01/24 11:47 97 Room Air 02/01/24 07:59 97 Room Air 02/01/24 07:22 95 Room Air 02/01/24 05:46 02/01/24 03:33 98 Room Air 02/01/24 00:54 Laboratory Results Cardiac Enzymes 01/31/24 01/31/24 02/01/24 Range/Units 14:05 22:19 05:37 Troponin I High Sens 6.1 6.4 4.6 (0-14) pg/ml Coagulation 01/31/24 Range/Units 14:05 PT 10.5 (9.0-12.0) Seconds APTT 25 (21-31) Seconds CBC 01/31/24 02/01/24 Range/Units 14:05 05:37 WBC 9.01 9.26 (4.8-10.8) K/ul RBC 5.93 H 5.46 H (4.20-5.40) M/uL Hgb 12.0 11.3 L (12.0-16.0) g/dl Hct 38.8 36.1 L (37.0-47.0) % Plt Count 285 301 (130-400) K/uL Neut # (Auto) 5.19 (1.40-6.50) K/uL Lymph # (Auto) 2.42 (1.20-3.40) K/uL [place] # (Auto) 1.05 H (0.11-0.59) K/uL Eos # (Auto) 0.23 (0.00-0.50) K/uL Baso # (Auto) 0.07 (0.00-0.20) K/uL Comprehensive Metabolic Panel 01/31/24 02/01/24 Range/Units 14:05 05:37 Sodium 139 141 (136-145) mmol/L Potassium 3.4 L 4.0 (3.5-5.1) mmol/L Chloride 101 103 (98-107) mmol/L Carbon Dioxide 32 32 (21-32) mmol/L BUN 9 12 (6-23) mg/dl Creatinine 0.88 0.77 (0.6-1.2) mg/dl Glucose 99 88 (70-99(Fasting)) mg/dl Calcium 10.0 9.2 (8.6-10.3) mg/dl Intake and Output 01/31/24 02/01/24 02/01/24 22:59 06:59 14:59 Other: Weight 79 kg 79 kg Weight Measurement Method Standing Scale Patient Weight 02/02/24 06:59 Weight 79 kg Diagnostic Findings EKG performed 01/31/2024 and interpreted independently: Sinus rhythm at 96 bpm with left ventricular hypertrophy by voltage criteria. No significant repolarization abnormalities Repeat tracing 02/01/2024: Sinus bradycardia 58 bpm, LVH by voltage criteria. CT angiogram of the chest: Radiology report: No pulmonary emboli identified Mild aneurysmal dilatation of the ascending aorta, 4.1 cm at the level of the main pulmonary artery Mild enlargement of the cardiac silhouette Dilatation of the central pulmonary arteries which raises possibility of underlying pulmonary hypertension Mild emphysema (1) Chest pain Chest pain type: unspecified Qualified Code(s): R07.9 - Chest pain, unspecified
--- NOTE | 2024-02-01 12:45 | Discharge Summary ---
Discharge Summary Date of Service February 01, 2024 Principal Dx & Hospital Course #1 = Principal Diagnosis (1) HTN (hypertension): (2) Vitamin D deficiency: (3) Beta thalassemia: (4) Chest pain: (5) Hypertensive urgency: (6) Asthma: Plan Pt is a 48-year-old female with PMHx of beta thalassemia, HTN, intermittent asthma, vitamin D deficiency, history of smoking, chronic bilateral low back pain with sciatica who presents to the hospital with acute onset of chest pain with radiation to the R shoulder blade and down into right arm. Chest Pain EKG with no acute findings Tropx2 wnl at 6.1 to 6.4 Chest xray no acute findings Chest CTA noting 4.1cm aneurysm of the aorta, cardiomegaly, possible PAH Echo with the following findings: EF 55-60%, small anterior loculated pericardial effusion, no cardiac tamponade, Grade I diastolic dysfunction, mild AR, mild LVH, no wall motion abnormalities Telemetry monitoring Pt was made NPO overnight for possible stress test this AM. Reportedly angry about not eating, declining stress testing at this time Cardiology consulted, appreciate recs -recommended stress testing. initially pt agreeable then stated she was leaving AMA Pt signed AMA paperwork, and walked out of the hospital with her in stable condition. Hypertensive Urgency Initial BP was 215/118 Was given IV labetolol and po lisinopril with improvement in BP to 168/107 started on metoprolol 25 mg BID with hctz 12.5mg Possible cause of chest pain PCP followup as pt left AMA Possible pulmonary Artery HTN Noted on chest CTA Echo as above Cardiology consulted as above Consider pulm consult PCP followup as pt left AMA Ascending Aorta Aneurysm Noted on CTA chest, 4.1cm PCP followup as pt left AMA Emphysema Pt with past and current tobacco use Chantix stopped 3 days ago - significant anxiety No increased oxygen requirement Encourage cessation PCP followup as pt left AMA Hypokalemia K of 3.4 on admission replete as needed beta thalassemia Microcytic anemia Hgb 11-12 range Microcytic cells Noted hx of beta thal PCP followup as pt left AMA Anxiety Panic Attack Psych consulted. Recommended/stated the following: "Diagnostically consistent with ELIZABET. She is not interested in an SSRI or SNRI trial at this time which in combination with therapy would be first line treatment. She is willing to discuss therapy options in the future with her primary care provider. She is interested in trial of trazodone for insomnia, reviewed side effects including sedation. -Consider trazodone 50mg HS (can increase to 100mg HS if needed) -Consider outpatient referrals for therapy" PCP followup as pt left AMA R shoulder pain Consider XR r/o MSK cause Negative empty can test, has point tenderness over the acromion process with palpation PT/OT Consider ortho PCP followup as pt left AMA Notes For Next Care Provider Pt left AMA, please ensure followup of the above Medication Changes From Visit None- Pt left AMA Admission HPI Per Admitting Provider This is a 48-year-old female with PMHx of beta thalassemia, HTN, intermittent asthma, vitamin D deficiency, history of smoking, chronic bilateral low back pain with sciatica who presents to the hospital with acute onset of chest pain with radiation to the R shoulder blade and down into right arm. She reports that this began approximately 1 hour prior to her arrival in the ER, notes that she was significantly stressed and anxious about a argument she was having with her about the television. He is seated at bedside and confirms this. She reports that her anxiety has been extremely high in the past week regarding repeated television arguments. She has never had chest pain like this before. Denies any shortness of breath during these events, no headache although she has a history of migraine, no other acute symptoms. Currently she denies any chest pain or shortness of breath.Did not take her morning HCTZ 12.5 mg this morning. 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 About 1 month ago she swung her arm hard and states that has had pain ever since then. She is unable to lift more than 5 pounds above the height of the shoulder without pain. She was started on gabapentin by PCP 1 week ago and reports that this has improved numbness and tingling pain which was running down into her right arm. Denies any current shoulder pain or arm pain, states that her arm pain she fell earlier today has been similar to that she is experienced in the past month. Patient was seen by PCP approximately 1 week ago, was started on Chantix for cessation of smoking cigarettes which she has been doing for 2 years, prior to that was vaping nicotine x 15 years. She took the Chantix for 3 days and then quit, which was 01/28/2024. Patient denies any significant improvement with being on Chantix for 3 days. Patient states that she prefers a vape and wants to go back to doing this. She also says she has the willpower to quit nicotine all on her own if she wants to. Admits to smoking marijuana occasionally, also uses marijuana Gummies. Denies any illicit drug use otherwise or alcohol use. Reports unintentional weight loss of ~20 lbs over the past year due to poor diet. Also noting rash over her chin s/p shaving, also around her neck and between breasts which is itchy, started 3 days ago. Family history: Mother: heart disease, DC, at age 67 Maternal grandmother: COVID and DC, in her 80s. Paternal grandmother: heart disease, from walking pneumonia Initially she presented to the hospital with a BP of 215/116, received 1 dose of sublingual nitro with slight improvement in chest discomfort. EKG did not show any acute findings. Troponin is negative at 6.1. She did not take any of her morning antihypertensive medications today which includes HCTZ 12.5 daily. CTA of the chest was negative for PE. Admission Exam Per Admitting Provider General: awake, alert, no apparent distress, female Head: Normocephalic, atraumatic ENT: PERRL, EOMI, no pharyngeal exudate, mucous membranes moist Chest: Clear to auscultation, on room air, no adventitious breath sounds Cardiac: Chest nontender to palpation, nitropaste on chest, Regular rate and rhythm, no murmur, no JVD, normal peripheral pulses, good capillary refill Abdominal: NABS x 4 quadrants, soft, nondistended, nontender to palpation, no rebound or guarding Extremities: Normal inspection, no peripheral edema or erythema, calfs nontender to palpation, + point tenderness in R AC joint on palpation, negative empty can test, pt moves arm with full active ROM. Psych: Normal mood and affect Neuro: AAO x 3, strength intact bilaterally and rated 5/5, no motor deficits, speech is clear, no peripheral sensory deficits Discharge Exam General: Alert, oriented. Skin: No noted rashes or bruises Psych: anxious mood and affect HEENT: NC/AT CV: RRR Resp: Breath sounds clear bilaterally, no increased effort of breathing. Abdomen: Soft, nontender, nondistended Extremities: No edema in lower extremities bilaterally. Updated Medication List Medication Instructions Recorded Confirmed Type albuterol sulfate 90 mcg/actuation 2 inh inhalation QID 01/31/24 01/31/24 History aerosol inhaler cholecalciferol (vitamin D3) 10 400 unit PO BID 01/31/24 01/31/24 History mcg (400 unit) tablet ferrous sulfate 325 mg (65 mg 325 mg PO BID 01/31/24 01/31/24 History iron) tablet fluticasone fur. 200 mcg-umeclid 1 inh inhalation QPM 01/31/24 01/31/24 History 62.5 mcg-vilant 25 mcg inhalat.powder (Trelegy Ellipta) gabapentin 300 mg capsule 600 mg PO HS 01/31/24 01/31/24 History hydrochlorothiazide 12.5 mg capsule 12.5 mg PO QAM 01/31/24 01/31/24 History montelukast 10 mg tablet 10 mg PO QAM 01/31/24 01/31/24 History dbqssghm-qry-nitxk ac 400 1 tab PO QAM 01/31/24 01/31/24 History mcg-calcium carb 500 mg-vit K1 20 mcg tablet (Women's 50 Plus Multivitamin) varenicline 0.5 mg (11)-1 mg (42) 1 ea PO DIRECTED 01/31/24 01/31/24 History tablets in a dose pack Hospital Stay Data Consultations 01/31/24 15:27 ED Decision to Admit Stat 01/31/24 15:48 Consult Cardiology Routine 01/31/24 16:16 Consult Psychiatry Routine Diagnostic Imagining Performed 01/31/24 14:06 CT angio chest PE protocol Stat Chest X-Ray 01/31/24 14:05 XR chest 1V portable CLINICAL HISTORY: Chest pain, nonspecific TECHNIQUE: Single frontal radiograph of the chest was obtained. Comparison: None available at the time of this dictation. FINDINGS: No lines and tubes are seen. Cardiomegaly is noted. The lungs are clear. No evidence of pleural effusion or pneumothorax. IMPRESSION: No acute chest disease. ACT 112: Negative or not required by law. Electronically signed by: Pierce Vázquez M.D. 01/31/2024 2:28 PM Chest CTA 08/07/24 14:06 CT ANGIOGRAPHY OF THE CHEST, PULMONARY EMBOLUS PROTOCOL CLINICAL HISTORY: Chest Pain, eval for PE COMPARISON STUDY: Chest radiograph performed earlier today. TECHNIQUE: Following IV administration of 119 mL of Optiray, helical axial images of the chest were obtained utilizing the pulmonary embolus protocol. Maximal intensity projections and sagittal and coronal reformats were viewed on an independent 3D workstation. IV contrast was administered without complication. Automated exposure control was utilized for the study. A dose lowering technique was utilized adhering to the principles of ALARA. CT DOSE: 666.51 mGy.cm FINDINGS: No pulmonary emboli are identified. There is no thoracic aortic dissection. There is mild aneurysmal dilatation of the ascending aorta measuring 4.1 cm at the level of the main pulmonary artery. The central pulmonary arteries are mildly dilated. Main pulmonary artery measures 3.6 cm in caliber. The heart is mildly enlarged. There is no pericardial effusion. There is no pneumothorax or pleural effusion. There is no consolidation to suggest pneumonia. Mild upper lobe predominant emphysema is present. There are no suspicious pulmonary nodules. IMPRESSION: 1. No pulmonary emboli identified. 2. No acute intrathoracic findings. 3. Mild aneurysmal dilatation of the ascending aorta measuring 4.1 cm at the level of the main pulmonary artery. 4. Mild cardiomegaly. 5. Dilatation of the central pulmonary arteries which raises the possibility of pulmonary arterial hypertension. 6. Mild emphysema. ACT 112: Negative or not required by law. Electronically signed by: Joe Amos M.D. 01/31/2024 3:22 PM Discharge Instructions Given to Patient (Per Discharging Provider) Pt left AMA Total Time Total Time Spent Total Time Spent (In Minutes): 75
--- NOTE | 2024-02-01 14:46 | Electrocardiogram Report ---
Test Reason : Blood Pressure : */* mmHG Vent. Rate : 58 BPM Atrial Rate : 58 BPM P-R Int : 192 ms QRS Dur : 90 ms QT Int : 458 ms P-R-T Axes : 72 71 32 degrees QTcB Int : 449 ms Sinus bradycardia Voltage criteria for left ventricular hypertrophy Abnormal ECG No previous ECGs available Confirmed by Chin Jackson ([id number]) on 02/01/2024 2:45:52 PM Referred By: REFERRED SELF Confirmed By: Chin Jackson
== END 2024-02-01 12:47 | disposition left against medical advice (07) | DRG 305 ==
LOC: ED 13:49 → MERGE 16:43 → 2N 16:43 → SUATTDRO 16:43 → 2N 17:10